=== PATIENT | male | born 1955 | race Caucasian/White ===

== ENCOUNTER 2018-06-13 15:52 | Emergency (ER) | payer MEDICARE, OTHER ==
[~2018-06-13] VITALS: Ht 177.8 cm; Wt 109.5 kg
[~2018-06-13 15:52] MED LIST: APIX5TAB3 PO; ATOR20TA66 PO; CARV3.12 PO; DIGO250T16 PO; FURO-150 PO; LISI-600 PO; OMEP40CA37 PO; SPIR25TA5 PO
[2018-06-13 15:53] VITALS: BP 162/111
[2018-06-13] MEDS ORDERED: NAPR-56 PO (17:14)
== END 2018-06-13 17:25 | disposition home or self-care (01) ==
LOC: ER 15:52
DX: M17.11 Unilateral primary osteoarthritis, right knee (principal); I50.9 Heart failure, unspecified; E78.00 Pure hypercholesterolemia, unspecified; I11.0 Hypertensive heart disease with heart failure; I25.2 Old myocardial infarction; J45.909 Unspecified asthma, uncomplicated; M19.90 Unspecified osteoarthritis, unspecified site; F12.90 Cannabis use, unspecified, uncomplicated; F15.90 Other stimulant use, unspecified, uncomplicated; Z86.711 Personal history of pulmonary embolism; Z79.01 Long term (current) use of anticoagulants; Z79.899 Other long term (current) drug therapy
CPT/HCPCS: 73564; 99283

== ENCOUNTER 2019-03-28 14:47 | Emergency (ER) | payer MEDICARE ==
[~2019-03-28] VITALS: Ht 170.2 cm; Wt 100.0 kg
[~2019-03-28 14:47] MED LIST changes: +OMEP40CA13 PO; -OMEP40CA37 PO
--- NOTE | 2019-03-28 15:48 | NUR ---
AWAITING ED PROVIDER.
[2019-03-28] MEDS ORDERED: AZIT250T83 PO (16:43)
[2019-03-28] MEDS ORDERED: BENZ-16 PO (16:43)
[2019-03-28 16:59] VITALS: BP 140/73
== END 2019-03-28 17:01 | disposition home or self-care (01) ==
LOC: ER 14:47
DX: J20.9 Acute bronchitis, unspecified (principal); I50.9 Heart failure, unspecified; E78.00 Pure hypercholesterolemia, unspecified; I11.0 Hypertensive heart disease with heart failure; I25.2 Old myocardial infarction; J45.909 Unspecified asthma, uncomplicated; M19.90 Unspecified osteoarthritis, unspecified site; F12.90 Cannabis use, unspecified, uncomplicated; F15.90 Other stimulant use, unspecified, uncomplicated; Z86.711 Personal history of pulmonary embolism; Z79.01 Long term (current) use of anticoagulants; Z79.2 Long term (current) use of antibiotics; Z79.899 Other long term (current) drug therapy
CPT/HCPCS: 71045; 99283